=== PATIENT | female | born 1955 | race Caucasian/White ===

== ENCOUNTER 2022-03-28 22:45 | Emergency (ER) | payer MEDICARE, OTHER ==
[~2022-03-28] VITALS: Ht 154.9 cm; Wt 87.5 kg
--- NOTE | 2022-03-29 00:20 | NUR ---
BIBDAUGHTER FROM HOME FOR GLF ON ESCELATOR AT 1500 L ANKLE AND KNEE PAIN AND RIGHT ELBOW PAIN. -TRAUMA/DEFORMITIES/SWELLING NOTED. PATIENT IS AAOX4, AMBULATORY, ABLE TO MAKE NEEDS KNOWN. PLACED COMFORTABLY IN BED. VITALS CHECKED
--- NOTE | 2022-03-29 00:47 | NUR ---
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
[2022-03-29] MEDS ORDERED: IBUPROFEN 400 MG TABLET ONE (00:49)
[2022-03-29] MEDS ORDERED: IBUPROFEN 400 MG TABLET PO ONE (01:00)
--- NOTE | 2022-03-29 01:23 | NUR ---
DAUGHTER IS ASKING THAT HER MOM TO BE DISCHARGE. IT WAS EXPLAINED TO HER THAT WE HAVE TO WAIT FOR THE RESULTS OF XRAYS BEFORE THE MD CAN DECIDE WHETHER TO ADMIT OR PT CAN BE SAFELY DISCHARGE. DAUGHTER ASKED HER MOM TO BE DC. MD TO NOTIFY
--- NOTE | 2022-03-29 01:25 | NUR ---
Patient does not wish to proceed with medical care recommended by ( ). Patient given information related to possible complications, up to and including , which could occur as a result of leaving the hospital at this time. Patient verbalizes understanding of risks involved due to leaving against medical advice. Patient has signed AMA form.
[2022-03-29 01:26] VITALS: BP 131/75
== END 2022-03-29 01:26 | disposition left against medical advice (07) ==
LOC: ER 22:48
DX: S83.92XA Sprain of unspecified site of left knee, initial encounter (principal); S93.402A Sprain of unspecified ligament of left ankle, initial encounter; S70.02XA Contusion of left hip, initial encounter; S50.01XA Contusion of right elbow, initial encounter; I10 Essential (primary) hypertension; W01.0XXA Fall on same level from slipping, tripping and stumbling without subsequent striking against object, initial encounter; Y93.89 Activity, other specified; Y92.89 Other specified places as the place of occurrence of the external cause; Y99.8 Other external cause status
CPT/HCPCS: 73070-TC; 73502; 73564-TC; 73610-TC